=== PATIENT | female | born 1955 | race Caucasian/White ===

== ENCOUNTER 2023-06-22 15:04 | Outpatient (RCR) | payer MEDICARE, BC, SELFPAY | END 2023-06-30 10:22 | disposition home or self-care (01) | LOC: RPT 15:04 | PROVIDERS: ATTENDING PHYSICIAN Internal Medicine Geriatric Medicine | DX: M81.0 Age-related osteoporosis without current pathological fracture (principal); Z73.6 Limitation of activities due to disability | CPT/HCPCS: 97110; 97162 ==

== ENCOUNTER → 2023-06-30 08:49 | Outpatient (REF) | payer MEDICARE, BC, SELFPAY | LOC: RAD 08:49 | PROVIDERS: ATTENDING PHYSICIAN Urology; FAMILY PHYSICIAN Internal Medicine Geriatric Medicine | DX: N39.3 Stress incontinence (female) (male) (principal); N39.41 Urge incontinence; N94.10 Unspecified dyspareunia | CPT/HCPCS: 76770; 76856 ==

== ENCOUNTER 2023-07-27 11:49 | Outpatient (RCR) | payer MEDICARE, BC, SELFPAY | END 2023-07-27 23:59 | disposition home or self-care (01) | LOC: RPT 11:49 | PROVIDERS: ATTENDING PHYSICIAN Urology; FAMILY PHYSICIAN Internal Medicine Geriatric Medicine | DX: N39.3 Stress incontinence (female) (male) (principal); N94.19 Other specified dyspareunia; Z73.6 Limitation of activities due to disability | CPT/HCPCS: 97112; 97140; 97162; 97530 ==

== ENCOUNTER 2023-08-22 13:05 | Outpatient (RCR) | payer MEDICARE, BC, SELFPAY | END 2023-08-22 23:59 | disposition home or self-care (01) | LOC: RPT 13:05 | PROVIDERS: ATTENDING PHYSICIAN Urology; FAMILY PHYSICIAN Internal Medicine Geriatric Medicine | DX: N39.3 Stress incontinence (female) (male) (principal); N39.41 Urge incontinence; N94.19 Other specified dyspareunia; Z73.6 Limitation of activities due to disability | CPT/HCPCS: 97112; 97140; 97530 ==

== ENCOUNTER 2023-09-30 08:59 | Outpatient (RCR) | payer MEDICARE, BC, SELFPAY | END 2023-09-30 23:59 | disposition home or self-care (01) | LOC: RPT 08:59 | PROVIDERS: ATTENDING PHYSICIAN Urology; FAMILY PHYSICIAN Internal Medicine Geriatric Medicine | DX: N39.46 Mixed incontinence (principal); N94.19 Other specified dyspareunia; Z73.6 Limitation of activities due to disability | CPT/HCPCS: 97112; 97530 ==

== ENCOUNTER 2023-10-25 13:14 | Outpatient (RCR) | payer MEDICARE, BC, SELFPAY | END 2023-10-25 23:59 | disposition home or self-care (01) | LOC: RPT 13:14 | PROVIDERS: ATTENDING PHYSICIAN Urology; FAMILY PHYSICIAN Internal Medicine Geriatric Medicine | DX: N39.3 Stress incontinence (female) (male) (principal); N94.19 Other specified dyspareunia; Z73.6 Limitation of activities due to disability | CPT/HCPCS: 97112; 97530 ==

== ENCOUNTER 2023-11-01 11:50 | Outpatient (RCR) | payer MEDICARE, BC, SELFPAY | END 2023-11-01 23:59 | disposition home or self-care (01) | LOC: RPT 11:50 | PROVIDERS: ATTENDING PHYSICIAN Urology; FAMILY PHYSICIAN Internal Medicine Geriatric Medicine | DX: N39.3 Stress incontinence (female) (male) (principal); N94.19 Other specified dyspareunia; Z73.6 Limitation of activities due to disability | CPT/HCPCS: 97112; 97530 ==

== ENCOUNTER 2023-12-22 12:50 | Outpatient (RCR) | payer MEDICARE, BC, SELFPAY | END 2023-12-22 23:59 | disposition home or self-care (01) | LOC: RPT 12:50 | PROVIDERS: ATTENDING PHYSICIAN Urology; FAMILY PHYSICIAN Internal Medicine Geriatric Medicine | DX: N39.3 Stress incontinence (female) (male) (principal); N94.19 Other specified dyspareunia; Z73.6 Limitation of activities due to disability | CPT/HCPCS: 97140; 97530 ==

== ENCOUNTER 2024-05-09 18:49 | Emergency (ER) | payer MEDICARE, BC, SELFPAY ==
[2024-05-09 18:54] VITALS: BP 124/83
--- NOTE | 2024-05-09 19:35 | ED.SKININJ ---
HPI-Injury
General
Chief Complaint: Skin Surface Trauma
Source: patient
Exam Limitations: none
Time Seen by Provider: 05/09/24 19:06
History of Present Illness-Injury
Initial Injury comments:
68-year-old female presents with laceration to right small finger. She was using a mandolin and sliced her finger. She was unable to get the stop bleeding at home. She notes a burning discomfort. No loss of function. No other complaints
Past History
Past History
ED Past Medical History: Cancer (Lung cancer, breast cancer), Psychiatric (Anxiety), Other (Cervical and lumbar disc disease) and Other (M�ni�re's disease)
ED Past Surgical History: Gynecological (Right breast lumpectomy �2 2009. Breast cancer treated with radiation and five-year course of tamoxifen which completed 2014), Orthopedic, Tonsilectomy and Other (Left lower lobectomy 2006)
Social History
Tobacco: Non-smoker
Alcohol: None
Personal:
Living: with family
Employment: Retired
Family History
Family History: Other (Mother with breast cancer )
Phy Exam
Physical Exam
Physical Exam:
General: Well-appearing female no acute respiratory distress
Skin: 1 cm by half centimeter avulsion type laceration ulnar distal aspect right small finger mild bleeding no tendon involvement
Musculoskeletal exam: Full range of motion right small finger
Course
Orders/Labs/Results
Orders:
Orders
05/09/24 20:03
Acetaminophen [Tylenol] 650 mg PO NOW STA
Vital Signs
Initial and Last Documented VS:
Initial Vital Signs
Temp Pulse Resp BP Pulse Ox
97.9 F 59 20 124/83 98
05/09/24 18:54 05/09/24 18:54 05/09/24 18:54 05/09/24 18:54 05/09/24 18:54
Last Documented Vital Signs
Temp Pulse Resp BP Pulse Ox
97.9 F 59 20 124/83 98
05/09/24 18:54 05/09/24 18:54 05/09/24 18:54 05/09/24 18:54 05/09/24 18:54
MDM/Problems Addressed
Differential Diagnosis Includes:
Avulsion laceration to distal right small finger. The area was irrigated with saline and dressed with Surgicel dressing gauze wrap
*Critical Care Note
Total Time (30-74mins, 75-104mins- exclusive of procedures): Not Applicable
Update Note
Update Note:
Wound dressed with surgical foam and gauze wrap. Tylenol ordered for pain. Wound care instructions were given. Stable for discharge. Patient initially was dressed with Surgicel however had a burning reaction to it so I removed this.
ED Attending Note
-
Portions of this chart may have been created with voice recognition software.� Occasional wrong word or��sound alike� substitutions may have occurred due to the inherent limitations of voice recognition software.
Discharge Plan
Departure
Patient Disposition: Home (Routine Discharge)
Date of Disposition: 05/09/24
Time of Disposition: 20:21
Patient with high blood pressure during this ER visit?: No
Discharge Problem:
Laceration
Instructions: Wound Care (DC)
Prescriptions:
No Action
cholecalciferol (vitamin D3) [Vitamin D3] 1,000 UNIT tablet
1,000 unit PO DAILY
triamterene-hydrochlorothiazid 1 EACH tablet
1 ea PO DAILY
promethazine [Promethegan] 25 MG suppository
25 mg LA BIDPRN PRN (Reason: vomitting w/ meniere's)
clonazepam 0.5 MG tablet
0.25 mg PO DAILYPRN PRN (Reason: meniere's attack)
Patient Comments:
02/08/2020: last filled 04/28/2017, 60 tabs for 30 days from [facility]
fluticasone propionate 1 SPRAY spray,suspension
2 spray intranasal DAILYPRN PRN (Reason: allergies)
loratadine 10 MG tablet
10 mg PO DAILYPRN PRN (Reason: allergies)
vitamin B complex [Neurodep] 1 CAP capsule
1 cap PO DAILY
magnesium oxide 500 MG capsule
500 mg PO DAILY
prednisone 10 mg Tablet
See Rx Instructions .ROUTE .COMPLEX Qty: 30 0RF
Rx Instructions:
Take By Mouth:
40 mg daily x3 days, 30 mg daily x3 days,
20 mg daily x3 days, 10 mg daily x3 days.
Referrals:
Kendrick Corrales MD [Family Provider] -
Activity Restrictions/Additional Instructions:
Keep current dressing on for 24 hours. Change as needed thereafter. You may continue with ibuprofen or Tylenol for pain control
Interventions
Interventions:
*Risk Screen - Suicide Last Done: 05/09/24 18:54
*General Assessment Last Done: 05/09/24 18:54
*Neglect/Abuse Screening Last Done: 05/09/24 18:54
*ED COVID-19 Vaccine History Last Done: 05/09/24 19:16
ED-Skin Assessment Last Done: 05/09/24 19:16
Discharge Date and Time
Print Language: GABONESE
[2024-05-09] MEDS: TYLENOL 650 MG PO (20:15)
== END 2024-05-09 20:42 | disposition home or self-care (01) ==
LOC: EMR 18:49
PROVIDERS: EMERGENCY PHYSICIAN Emergency Medicine; FAMILY PHYSICIAN Internal Medicine Geriatric Medicine
DX: S61.216A Laceration without foreign body of right little finger without damage to nail, initial encounter (principal); W27.4XXA Contact with kitchen utensil, initial encounter; F41.9 Anxiety disorder, unspecified; Z80.3 Family history of malignant neoplasm of breast; Z85.118 Personal history of other malignant neoplasm of bronchus and lung; Z85.3 Personal history of malignant neoplasm of breast
CPT/HCPCS: 99282

== ENCOUNTER → 2025-02-06 09:14 | Outpatient (REF) | payer MEDICARE, BC, SELFPAY | LOC: RAD 09:14 | PROVIDERS: ATTENDING PHYSICIAN Internal Medicine Geriatric Medicine | DX: M79.603 Pain in arm, unspecified (principal); M25.529 Pain in unspecified elbow; R52 Pain, unspecified | CPT/HCPCS: 73060; 73080 ==

== ENCOUNTER → 2025-03-11 11:12 | Outpatient (REF) | payer MEDICARE, BC, SELFPAY | LOC: RAD 11:12 | PROVIDERS: ATTENDING PHYSICIAN Internal Medicine Geriatric Medicine | DX: M81.0 Age-related osteoporosis without current pathological fracture (principal) | CPT/HCPCS: 77080 ==